=== PATIENT | female | born 1965 | race African-American/Black ===

== ENCOUNTER 2016-08-08 12:10 | Emergency (ER) | payer OTHER ==
[~2016-08-08] VITALS: Ht 154.9 cm; Wt 63.5 kg
[~2016-08-08 12:10] MED LIST: AZITHROMYCIN250 MG ORAL; BENAZEPRIL HCL10 MG ORAL; GLIPIZIDE5 MG ORAL; IBUPROFEN600 MG ORAL; LEVAQUIN500 MG ORAL; METFORMIN HCL500 M1 ORAL; METRONIDAZOLE500 MG ORAL; PROMETHAZINE-D118 ML ORAL; SIMVASTATIN5 MG ORAL; TRAMADOL HCL50 MG ORAL; TYLENOL EXTRA500 MG ORAL
[2016-08-08 12:30] VITALS: BP 125/80
[2016-08-08] MEDS ORDERED: ROBITUSSIN COU118 M4 PO (12:56)
[2016-08-08] MEDS ORDERED: ZITHROMAX250 MG ORAL (12:56)
[2016-08-08] MEDS ORDERED: PROAIR HFA8.5 GM INH (12:56)
[2016-08-08] MEDS ORDERED: PREDNISONE10 M2 PO (12:56)
[2016-08-08 13:00] VITALS: BP 125/80
--- NOTE | 2016-08-08 17:52 | Emergency Room Report ---
History of Present Illness General Chief Complaint: Upper Respiratory Illness Source: Patient (IRAIDA RUIZ) Present Illness HPI The patient is a 51-year-old female presenting for 5 days of productive cough, wheezing, and subjective fevers. The patient states that her son has similar symptoms. The patient denies any pain. The patient denies any recent travel. The patient admits to smoking cigarettes. The patient denies other symptoms including nausea, vomiting, headache, dizziness, shortness of breath, chest pain, night sweats, hemoptysis (IRAIDA RUIZ) Allergies: Coded Allergies: NO KNOWN ALLERGIES (Unverified Allergy, Unknown, 03/07/15) Patient History Past Medical History: see triage record Pertinent Family History: none Last Menstrual Period: na Reviewed Nursing Documentation: PMH: Agreed, PSxH: Agreed (IRAIDA RUIZ) Nursing Documentation-PMH Past Medical History: No History, Except For Hx Diabetes: Yes Hx Neurological Problems: No (IRAIDA RUIZ) Review of Systems All Other Systems: negative except mentioned in HPI (IRAIDA RUIZ.Bartolome) Physical Exam Vital Signs Date Time Temp Pulse Resp B/P Pulse Ox O2 Delivery O2 Flow Rate FiO2 08/08/16 12:17 98.2 97 18 125/80 98 Room Air Sp02 EP Interpretation: reviewed, normal General Appearance: no apparent distress, alert, GCS 15, non-toxic Head: normocephalic, atraumatic Eyes: bilateral eye PERRL, bilateral eye normal inspection ENT: hearing grossly normal, normal pharynx, no angioedema, normal voice, uvula midline Neck: full range of motion, supple/symm/no masses Respiratory: normal inspection, chest non-tender, no accessory muscle use, wheezing - diffuse Cardiovascular #1: regular rate, rhythm, no edema Genitourinary: normal inspection, no CVA tenderness Musculoskeletal: back normal, gait/station normal, normal range of motion, non- tender Neurologic: alert, oriented x3, responsive, motor strength/tone normal, sensory intact, speech normal Psychiatric: judgement/insight normal, memory normal, mood/affect normal, no suicidal/homicidal ideation Skin: normal color, no rash, warm/dry, well hydrated Lymphatic: no adenopathy (IRAIDA RUIZ) Medical Decision Making PA Attestation Dr. Mata is my supervising physician. Patient management was discussed with my supervising physician (IRAIDA RUIZ) Diagnostic Impression: Primary Impression: Atypical pneumonia ER Course The patient is a 51-year-old female presenting for 5 days of productive cough, wheezing, and subjective fevers Differential diagnosis include but not limited to pharyngitis, sinusitis, AOM, bronchitis, PNA PE: afebrile. No tachypnea. No apparent distress. No TTP over maxillary or frontal sinuses. Lungs: diffuse wheezing. No accessory muscle use. No resp distress Heart: RRR, no abnormal heart sounds Ears: external auditory canal clear. Non erythematous. Bilat TM intact. Cone of light present bilat. No bulging of TM. No serous fluid seen. no nasal D/C Nor cervical lymphad No tonsillar exudate. Uvula midline.Oropharynx non erythematous The patient will be discharged home with a prescription for Albuterol, prednisone, cough medication, and antibiotics due to the patient's history and symptoms (IRAIDA RUIZ) Last Vital Signs Date Time Temp Pulse Resp B/P Pulse Ox O2 Delivery O2 Flow Rate FiO2 08/08/16 12:17 98.2 97 18 125/80 98 Room Air Status: improved (IRAIDA RUIZ) Disposition: HOME, SELF-CARE Condition: Improved Scripts Guaifenesin/Dextromethorphan (Robitussin Cough-Chest Dm Liq) 118 Ml Liquid 10 ML PO Q4HR, #118 ML Prov: Margarita Parker 08/10/16 Azithromycin* (ZITHROMAX*) 250 Mg Tablet 250 MG ORAL DAILY, #6 TAB 0 Refills Take two tables once daily for 1 day, then one tablet once daily for 4 days. Prov: Margarita Parker 08/10/16 Prednisone (PREDNISONE) 10 Mg Tab.ds.pk 10 MG PO DAILY, #1 PACK Prov: IRAIDA RUIZAFreida 08/08/16 Albuterol Sulfate* (PROAIR HFA*) 8.5 Gm Hfa.aer.ad 2 PUFFS INH Q6H, #8.5 GM 0 Refills Prov: IRAIDA RUIZAFreida 08/08/16 Referrals: [facility],REFERRING (PCP) Patient Instructions: Cough, Adult Additional Instructions: I discussed my findings with the patient. All questions and concerns have been answered. Treatment and medication compliance have been addressed. I advised the patient that they need to follow up with PMD in 3-5 days. Return to ED if pain remains or worsens, cough worsens or remains, you notice blood in your sputum, you notice wheezing, you experience a fever, or if needed for any reason. Patient verbalized understanding of discharge instructions. IRAIDA RUIZ Aug 08, 2016 17:52 Long Mata M.D. Aug 11, 2016 02:18
[2016-08-10] MEDS ORDERED: ZITHROMAX250 MG ORAL (13:52)
[2016-08-10] MEDS ORDERED: ROBITUSSIN COU118 M4 PO (13:52)
== END 2016-08-08 13:00 | disposition home or self-care (01) ==
LOC: EMR 12:55
DX: J18.9 Pneumonia, unspecified organism (principal); E11.9 Type 2 diabetes mellitus without complications
CPT/HCPCS: 99284

== ENCOUNTER 2017-07-21 10:28 | Emergency (ER) | payer MEDICARE, OTHER ==
[~2017-07-21] VITALS: Ht 154.9 cm; Wt 57.6 kg
[~2017-07-21 10:28] MED LIST changes: +PREDNISONE10 M2 PO; +PROAIR HFA8.5 GM INH; +ROBITUSSIN COU118 M4 PO; +ZITHROMAX250 MG ORAL
[2017-07-21 10:59] VITALS: BP 119/86
[2017-07-21] MEDS ORDERED: AMOXICILLIN500 MG ORAL (11:05)
[2017-07-21] MEDS ORDERED: ALBUTEROL SULF8.5 GM INH (11:05)
[2017-07-21] MEDS ORDERED: TESSALON PERLE100 MG ORAL (11:05)
[2017-07-21 11:12] VITALS: BP 118/86
--- NOTE | 2017-07-22 07:34 | Emergency Room Report ---
History of Present Illness General Chief Complaint: Upper Respiratory Illness Source: Patient Present Illness HPI 51-year-old female presents ED for evaluation. Complaining of cough and cold symptoms for the last 3 days. Cough with yellowish phlegm. Notes soreness in her chest from persistent coughing. Pain is a 4/10, dull, nonradiating. denies shortness of breath. Admits to smoking. Denies sick contacts or recent travel. No other aggravating relieving factors. Denies any other associated symptoms Allergies: Coded Allergies: NO KNOWN ALLERGIES (Unverified Allergy, Unknown, 03/07/15) Patient History Past Medical History: DM Past Surgical History: none Pertinent Family History: none Social History: Denies: smoking, alcohol use, drug use Now: No Immunizations: UTD Reviewed Nursing Documentation: PMH: Agreed, PSxH: Agreed Nursing Documentation-PMH Past Medical History: No History, Except For Hx Diabetes: Yes Hx Neurological Problems: No Review of Systems All Other Systems: negative except mentioned in HPI Physical Exam Vital Signs Date Time Temp Pulse Resp B/P (MAP) Pulse Ox O2 Delivery O2 Flow Rate FiO2 07/21/17 10:37 97.7 104 18 119/86 94 Room Air 97.7 Sp02 EP Interpretation: reviewed, normal General Appearance: no apparent distress, alert, GCS 15, non-toxic Head: normocephalic, atraumatic Eyes: bilateral eye normal inspection, bilateral eye PERRL ENT: hearing grossly normal, normal pharynx, no angioedema, normal voice Neck: full range of motion, supple/symm/no masses Respiratory: chest non-tender, lungs clear, normal breath sounds, speaking full sentences Cardiovascular #1: regular rate, rhythm, no edema Cardiovascular #2: 2+ carotid (R), 2+ carotid (L), 2+ radial (R), 2+ radial (L) , 2+ dorsalis pedis (R), 2+ dorsalis pedis (L) Gastrointestinal: normal bowel sounds, non tender, soft, non-distended, no guarding, no rebound Rectal: deferred Genitourinary: normal inspection, no CVA tenderness Musculoskeletal: back normal, gait/station normal, normal range of motion, non- tender Neurologic: alert, oriented x3, responsive, motor strength/tone normal, sensory intact, speech normal Psychiatric: judgement/insight normal, memory normal, mood/affect normal, no suicidal/homicidal ideation Reflexes: 3+ bicep (R), 3+ bicep (L), 3+ tricep (R), 3+ tricep (L), 3+ knee (R) , 3+ knee (L) Skin: normal color, no rash, warm/dry, well hydrated Lymphatic: no adenopathy Medical Decision Making Diagnostic Impression: Primary Impression: Atypical pneumonia ER Course Hospital Course 51-year-old female presents to ED complaining of cough x 3 days Differential diagnoses include: URI, pharyngitis, otitis media, asthma Clinical course Patient placed on stretcher. After initial history, physical exam reveals female in no acute distress. Bilateral TM unremarkable. No pharyngeal erythema. No tonsillar exudates. No lymphadenopathy. lungs clear. abdomen soft. Clinical findings consistent with bronchitis. discussed findings with patient. Given smoking history will prescribe antibiotics. Diagnosis - bronchitis Stable and discharged home with Rx albuterol, tessalon perles, amoxicillin. Instructed to followup with PMD. Return to ED if symptoms recur or worsen Last Vital Signs Date Time Temp Pulse Resp B/P (MAP) Pulse Ox O2 Delivery O2 Flow Rate FiO2 07/21/17 11:12 97.7 99 18 118/86 95 Room Air 97.7 Status: improved Disposition: HOME, SELF-CARE Condition: Stable Scripts Albuterol Sulfate* (ALBUTEROL SULFATE MDI*) 8.5 Gm Hfa.aer.ad 2 PUFF INH Q6H, #1 EA 0 Refills Prov: SAMI BONE M.D. 07/21/17 Benzonatate* (TESSALON PERLE*) 100 Mg Capsule 100 MG ORAL THREE TIMES A DAY for 7 Days, PERLE Prov: SAMI BONE M.D. 07/21/17 Amoxicillin* (AMOXIL*) 500 Mg Capsule 500 MG ORAL THREE TIMES A DAY, #21 CAP Prov: SAMI BONE M.D. 07/21/17 Patient Instructions: Acute Bronchitis, [id number] SAMI BONE M.D. Jul 22, 2017 07:34
== END 2017-07-21 11:19 | disposition home or self-care (01) ==
LOC: EMR 10:55
DX: J18.9 Pneumonia, unspecified organism (principal); J86.0 Pyothorax with fistula; E11.9 Type 2 diabetes mellitus without complications
CPT/HCPCS: 99284

== ENCOUNTER 2018-09-03 12:56 | Emergency (ER) | payer MEDICARE ==
[~2018-09-03] VITALS: Ht 154.9 cm; Wt 56.2 kg
[~2018-09-03 12:56] MED LIST changes: +ALBUTEROL SULF8.5 GM INH; +AMOXICILLIN500 MG ORAL; +TESSALON PERLE100 MG ORAL
--- NOTE | 2018-09-03 13:24 | Emergency Room Report ---
History of Present Illness General Chief Complaint: Dyspnea/Respdistress Source: Patient, Medical Record Present Illness HPI 53-year-old female with history of uncontrolled diabetes, heavy tobacco smoker, and daily alcohol use here complaining of pain in her back when taking deep breaths one day. Patient denies any trauma to the chest. she states that the pain and pressure started at rest. Denies frontal chest pain or any radiation to arm and jaw. Denies wheezing, cough, congestion. Patient reports that she has history of pneumonia and bronchitis. Is noncompliant with her metformin and glipizide and has not checked her blood sugar in a very long time. She reports that she smokes 1 pack of cigarettes every day and drinks alcohol on daily basis. Dizziness, headache, shortness of breath, palpitation, abdominal pain, urinary symptoms and all other associated symptoms. Allergies: Coded Allergies: NO KNOWN ALLERGIES (Unverified Allergy, Unknown, 09/03/18) Patient History Past Medical History: see triage record Past Surgical History: unable to obtain Pertinent Family History: none Social History: Reports: smoking - tobacco one pack a day, alcohol use - drinks daily Now: No Immunizations: UTD Reviewed Nursing Documentation: PMH: Agreed; PSxH: Agreed Nursing Documentation-PMH Past Medical History: No History, Except For Hx Diabetes: Yes - NIDDM2 Hx Neurological Problems: No Review of Systems All Other Systems: negative except mentioned in HPI Physical Exam Vital Signs Date Time Temp Pulse Resp B/P (MAP) Pulse Ox O2 Delivery O2 Flow Rate FiO2 09/03/18 13:00 98.2 73 18 142/86 97 Room Air Sp02 EP Interpretation: reviewed, normal General Appearance: normal inspection, well appearing, no apparent distress, alert Head: normocephalic, atraumatic Eyes: bilateral eye normal inspection, bilateral eye PERRL ENT: normal ENT inspection, normal pharynx Neck: normal inspection, full range of motion, supple, no carotid bruits Respiratory: normal inspection, chest non-tender, lungs clear, no rhonchi, no respiratory distress, no retraction, no accessory muscle use, no wheezing Cardiovascular #1: normal inspection, no edema, no murmur Gastrointestinal: normal inspection, soft, no bruit Rectal: deferred Genitourinary: no CVA tenderness Musculoskeletal: normal inspection, back normal, digits/nails normal Neurologic: normal inspection, alert, oriented x3, responsive Psychiatric: normal inspection, judgement/insight normal Skin: normal inspection, normal color, no rash, warm/dry Lymphatic: normal inspection, no adenopathy Medical Decision Making PA Attestation Diagnosis and treatment plans were reviewed and discussed with my supervising physician Diagnostic Impression: Primary Impression: Pleuritic chest pain Additional Impression: Diabetes mellitus ER Course 53-year-old female with history of uncontrolled diabetes, heavy tobacco smoker, and daily alcohol use here complaining of pain in her back when taking deep breaths one day. Patient denies any trauma to the chest. she states that the pain and pressure started at rest. Denies frontal chest pain or any radiation to arm and jaw. Denies wheezing, cough, congestion. Patient reports that she has history of pneumonia and bronchitis. Is noncompliant with her metformin and glipizide and has not checked her blood sugar in a very long time. She reports that she smokes 1 pack of cigarettes every day and drinks alcohol on daily basis. Dizziness, headache, shortness of breath, palpitation, abdominal pain, urinary symptoms and all other associated symptoms. Ddx considered but are not limited to pneumonia, myocardial infarction, pleuritic chest pain secondary to pulmonary embolism, Vital signs: are WNL, pt. is afebrile H&PE are most consistent with pleuretic chest pain, cocaine use, diabetes melitus uncontrolled ORDERS: Chest x-ray, EKG, chest pain workup set, augmentin(for protective purposes), ibuprofen ED INTERVENTIONS: None required at this time. DISCHARGE: At this time pt. is stable for d/c to home. Will provide printed patient care instructions, and any necessary prescriptions. Care plan and follow up instructions have been discussed with the patient prior to discharge. Follow-up with a primary care provider for further workup needed to be referred to rv detailer avoid using cocaine diabetes to be controlled by primary care provider possible insulin stable to be discharged today positive cocaine, HgA1C; 8, B Last Vital Signs Date Time Temp Pulse Resp B/P (MAP) Pulse Ox O2 Delivery O2 Flow Rate FiO2 09/03/18 13:00 98.2 73 18 142/86 97 Room Air Disposition: HOME, SELF-CARE Condition: Stable Scripts Ibuprofen (IBUPROFEN) 200 Mg Capsule 200 MG ORAL FOUR TIMES A DAY, #30 CAP 0 Refills Prov: Kathryn Joaquin 09/03/18 Amoxicillin/Potassium Clav 875-125* (AUGMENTIN 875-125 TABLET*) 1 Each Tablet 1 TAB ORAL TWICE A DAY for 10 Days, #20 TAB Prov: Kathryn Joaquin 09/03/18 Patient Instructions: Diabetes Mellitus and Food, Shortness of Breath, Easy-to- Read, Stimulant Use Disorder-Cocaine Additional Instructions: Follow-up with the primary care provider to be referred to rv detailer for CT scan of chest and a refer to grocery buyer for enlarged heart as well as ultrasound of heart. Primary doctor reassess blood sugar and manage your medication. Avoid smoking tobacco, cocaine use, marijuana. At this time patient stable to be discharged and follow-up with the primary care provider Kathryn Joaquin Sep 03, 2018 13:24
--- NOTE | 2018-09-03 13:30 | NUR ---
ED Nurse Note: walked in c/c left side back-lung pain when breathing, sharp pain since today. pt relative on bedside. pt denies coughing. pt is complaining of 9/10 pain on left lung upon inhalation. will continue to monitor.
[2018-09-03 14:00] VITALS: BP 142/86
--- NOTE | 2018-09-03 14:00 | NUR ---
ED Nurse Note: walked in c/c left side back-lung pain when breathing, sharp pain since today. pt denies cough. pt is complaining of 9/10 pain on left 'lung' when inspiration.
[2018-09-03 14:26] LABS: APPEARANCE,URINE CLEAR; BILIRUBIN, URINE NEGATIVE (NEGATIVE); COLOR,URINE PALE YELLOW; GLUCOSE, URINE (UA) 1+ (NEGATIVE); KETONES,URINE NEGATIVE (NEGATIVE); LEUKOCYTE ESTERASE ,URINE NEGATIVE (NEGATIVE); NITRITE,URINE NEGATIVE (NEGATIVE); PH,URINE 5 (4.5-8.0); PROTEIN,URINE NEGATIVE (NEGATIVE); UROBILINOGEN,URINE NORMAL MG/DL (0.0-1.0)
[2018-09-03 14:29] LABS: BASOPHILS % (AUTO) 1.1 % (0.0-2.0); EOSINOPHILS % (AUTO) 1.5 % (0.0-3.0); HEMATOCRIT 41.3 % (37.0-47.0); LYMPHOCYTES % (AUTO) 21.6 % (20.0-45.0); MEAN CORPUSCULAR VOLUME 98 FL (80-99); MONOCYTES % (AUTO) 5.2 % (1.0-10.0); NEUTROPHILS % (AUTO) 70.6 % (45.0-75.0); PLATELET COUNT 339 K/UL (150-450); RED CELL DISTRIBUTION WIDTH 12.8 % (11.6-14.8); WHITE BLOOD COUNT 11.9 K/UL (4.8-10.8)
[2018-09-03 14:41] LABS: ANION GAP 10 mmol/L (5-15); BLOOD UREA NITROGEN 10 mg/dL (7-18); CALCIUM 9.4 MG/DL (8.5-10.1); CARBON DIOXIDE 28 MMOL/L (21-32); CHLORIDE 100 MMOL/L (98-107); CREATININE 0.7 MG/DL (0.55-1.30); POTASSIUM 4.1 MMOL/L (3.5-5.1); SODIUM 138 MMOL/L (136-145)
[2018-09-03 14:44] LABS: GLUCOSE,FASTING 222 MG/DL (70-110)
[2018-09-03 14:57] LABS: ALANINE AMINOTRANSFERASE 33 U/L (12-78); ALBUMIN 3.9 G/DL (3.4-5.0); ALBUMIN/GLOBULIN RATIO 0.8 (1.0-2.7); ALKALINE PHOSPHATASE 83 U/L (46-116); ASPARTATE AMINO TRANSFERASE 17 U/L (15-37); BILIRUBIN,TOTAL 0.4 MG/DL (0.2-1.0); CKMB < 0.5 NG/ML (0.0-3.6); CREATINE KINASE 63 U/L (26-308)
[2018-09-03] MEDS ORDERED: AUGMENTIN 875-1 EAC1 ORAL (15:29)
[2018-09-03] MEDS ORDERED: IBUPROFEN200 M2 ORAL (15:29)
[2018-09-03 15:45] VITALS: BP 142/86
--- NOTE | 2018-09-03 15:45 | NUR ---
ER DISCHARGE NOTE: Patient is cleared to be discharged per ERMD, pt is aox4, on room air, with stable vital signs. pt was given dc and prescription instructions, pt was able to verbalize understanding, pt id band and iv site removed without complications. pt is able to ambulate with steady gait. pt took all belongings.
--- NOTE | 2018-09-04 11:33 | Diagnostic Imaging Report ---
Indication: Chest pain Technique: One view of the chest Comparison: 04/20/2016 Findings: Lungs and pleural spaces are clear. Heart size is normal. No significant interim change Impression: No acute process
--- NOTE | 2018-09-04 19:40 | Cardiology Report ---
APPROVED REPORT EKG Measurement Heart [id number] Normal sinus rhythm Normal ECG
== END 2018-09-03 15:45 | disposition home or self-care (01) ==
LOC: EMR 13:10
DX: R07.89 Other chest pain (principal); E11.9 Type 2 diabetes mellitus without complications; F17.210 Nicotine dependence, cigarettes, uncomplicated; Z91.14 Patient's other noncompliance with medication regimen; F14.90 Cocaine use, unspecified, uncomplicated
CPT/HCPCS: 36415; 71045; 80053; 80307; 81001; 82550; 82553; 82947; 83036; 84484; 85025; 93005; 99284; G0480; 80329

== ENCOUNTER 2020-04-08 18:09 | Emergency (ER) | payer MEDICARE ==
[~2020-04-08] VITALS: Ht 154.9 cm; Wt 56.7 kg
[~2020-04-08 18:09] MED LIST changes: +AUGMENTIN 875-1 EAC1 ORAL; +IBUPROFEN200 M2 ORAL
[2020-04-08] MEDS ORDERED: Methocarbamol 750mg tab ORAL ONE (18:45)
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
[2020-04-08] MEDS ORDERED: AUGMENTIN 875-1 EAC1 ORAL (18:47)
[2020-04-08] MEDS ORDERED: ACETAMINOPHEN-1 EAC1 ORAL (18:47)
[2020-04-08] MEDS ORDERED: TYLENOL EXTRA500 MG ORAL (18:47)
[2020-04-08 19:30] VITALS: BP 135/73
--- NOTE | 2020-04-09 13:09 | Diagnostic Imaging Report ---
Indication: Pain, trauma Technique: 3 views of the right ankle Comparison: none Findings: No acute fractures. No dislocations. The joint spaces are preserved. Impression: Negative
--- NOTE | 2020-04-09 13:12 | Diagnostic Imaging Report ---
Indication: Trauma, pain Technique: 3 views right foot Comparison: none Findings: There is an oblique fracture of the second metatarsal shaft. This is displaced by nearly one bone width, slightly overriding. No other acute fractures. No dislocations. There is hallux valgus. There is mild degenerative change of the first metatarsophalangeal joint. Impression: Positive for second metatarsal shaft fracture This agrees with the preliminary interpretation reported by the emergency room physician in the electronic medical record
== END 2020-04-08 19:30 | disposition home or self-care (01) ==
LOC: EMR 19:20
DX: S92.321A Displaced fracture of second metatarsal bone, right foot, initial encounter for closed fracture (principal); S60.512A Abrasion of left hand, initial encounter; S60.511A Abrasion of right hand, initial encounter; L08.9 Local infection of the skin and subcutaneous tissue, unspecified; Y04.0XXA Assault by unarmed brawl or fight, initial encounter; I10 Essential (primary) hypertension; E11.9 Type 2 diabetes mellitus without complications
CPT/HCPCS: 29515; 99283